=== PATIENT | male | born 1950 | race Caucasian/White ===

== ENCOUNTER 2022-01-23 08:09 | Outpatient (CLI) | payer MEDICARE, BC ==
[2022-01-23] MEDS ORDERED: Iopamidol 370 76% 100 ML VIAL ONE (11:27)
== END 2022-01-23 08:10 | disposition home or self-care (01) ==
LOC: CT 08:09
PROVIDERS: ATTEND Urology
DX: C61 Malignant neoplasm of prostate (principal); K40.90 Unilateral inguinal hernia, without obstruction or gangrene, not specified as recurrent; Z85.46 Personal history of malignant neoplasm of prostate
CPT/HCPCS: 74177; 78306; 82565; A9503; Q9967